=== PATIENT | male | born 1975 | race Hispanic/Latino ===

== ENCOUNTER 2020-06-30 16:02 | Emergency (ER) | payer MEDICARE, OTHER ==
[2020-06-30] MEDS ORDERED: SODIUM CHLORIDE 0.9% 1000ML 1,000 ML IV ONE (16:24)
[2020-06-30] MEDS ORDERED: DiphenhydrAMINE HCL 50 MG/ML VIAL ONE (16:25)
[2020-06-30] MEDS ORDERED: FAMOTIDINE/PF 20 MG/2 ML VIAL IV ONE (16:25)
[2020-06-30] MEDS ORDERED: METHYLPREDNISOLONE SOD SUCC 125MG/2ML VIAL ONE (16:25)
[2020-06-30] MEDS ORDERED: INSULIN HUMULIN R 100 UNIT/ML 3ML ONE (16:26)
== END 2020-06-30 18:10 | disposition home or self-care (01) ==
LOC: EDH 16:02
DX: T63.441A Toxic effect of venom of bees, accidental (unintentional), initial encounter (principal); E11.65 Type 2 diabetes mellitus with hyperglycemia; I10 Essential (primary) hypertension; E78.00 Pure hypercholesterolemia, unspecified; Y92.89 Other specified places as the place of occurrence of the external cause
CPT/HCPCS: 82948 ×2; 96365; 96375; 99284; J1200; J1815; J2930; J3490; J7030

== ENCOUNTER 2023-04-16 12:57 | Emergency (ER) | payer BC ==
[~2023-04-16] VITALS: Ht 170.2 cm; Wt 113.4 kg
[2023-04-16] MEDS ORDERED: CEFAZOLIN SODIUM 1 GM VIAL IVPB STA (13:11)
[2023-04-16] MEDS ORDERED: MORPHINE 4 MG SYG IVP ONE (13:30)
[2023-04-16] MEDS ORDERED: TETANUS/DIPHTHERIA TOXOID [ADULT] 0.5 ML VIAL IM ONE (13:30)
[2023-04-16] MEDS ORDERED: ONDANSETRON 4MG INJ IVP ONE (13:30)
[2023-04-16] MEDS ORDERED: IBUP-2077 PO (15:11)
[2023-04-16] MEDS ORDERED: CEPH500B PO (15:11)
[2023-04-16 15:46] VITALS: BP 132/69; PULSE 78; RESP 18; O2SAT 99
== END 2023-04-16 15:47 | disposition home or self-care (01) ==
LOC: EDH 12:57
DX: S62.635A Displaced fracture of distal phalanx of left ring finger, initial encounter for closed fracture (principal); X58.XXXA Exposure to other specified factors, initial encounter; Y93.89 Activity, other specified; Y92.89 Other specified places as the place of occurrence of the external cause; Y99.8 Other external cause status
CPT/HCPCS: 99284; 96365; 96375; 90714; 73140; 90471; 12001; J0690; J2405; J2270

== ENCOUNTER 2023-06-24 07:48 | Emergency (ER) | payer BC ==
[~2023-06-24] VITALS: Ht 170.2 cm; Wt 112.0 kg
[~2023-06-24 07:48] MED LIST: CEPH500B PO; IBUP-2077 PO
[2023-06-24] MEDS: CEFAZOLIN SODIUM 1 GM VIAL IM SCH (10:08)
[2023-06-24] MEDS: HYDROCODONE/ACETAMINOPHEN 5/325 MG TAB PO ONE (10:09)
[2023-06-24] MEDS: BUPIVACAINE/PF 0.5% 10ML VIAL IJ ONE (10:35)
[2023-06-24] MEDS ORDERED: NAPR-1180 PO (11:10)
[2023-06-24] MEDS ORDERED: MUPI22OI2 TP (11:10)
[2023-06-24] MEDS ORDERED: SULF1TAB42 PO (11:10)
[2023-06-24 11:19] VITALS: BP 148/82; PULSE 68; RESP 18; O2SAT 100
== END 2023-06-24 11:21 | disposition home or self-care (01) ==
LOC: EDH 07:48
DX: L03.012 Cellulitis of left finger (principal); E11.9 Type 2 diabetes mellitus without complications; I10 Essential (primary) hypertension
CPT/HCPCS: 64450; 99284; 96372; J0690; J0665